=== PATIENT | female | born 1975 | race Two or more races ===

== ENCOUNTER 2017-05-30 11:12 | Emergency (ER) | payer MEDICAID ==
[~2017-05-30] VITALS: Ht 165.1 cm; Wt 104.2 kg
[2017-05-30 11:13] VITALS: BP 122/83
[2017-05-30] MEDS ORDERED: DIAZEPAM 5 MG TABLET ONE (11:40)
[2017-05-30] MEDS ORDERED: KETOROLAC 30 MG/1 ML ONE (11:40)
[2017-05-30] MEDS ORDERED: HYDROcodone/APAP 5/325 TABLET ONE (11:40)
[2017-05-30] MEDS ORDERED: DIAZEPAM 5 MG TABLET PO ONE (12:00)
[2017-05-30] MEDS ORDERED: HYDROcodone/APAP 5/325 TABLET PO ONE (12:00)
[2017-05-30] MEDS ORDERED: KETOROLAC 30 MG/1 ML IM ONE (12:00)
== END 2017-05-30 12:39 | disposition home or self-care (01) ==
LOC: ED 12:00
DX: M47.896 Other spondylosis, lumbar region (principal); M54.16 Radiculopathy, lumbar region; M54.5 Low back pain; Z98.51 Tubal ligation status; Z90.710 Acquired absence of both cervix and uterus; Z88.8 Allergy status to other drugs, medicaments and biological substances
CPT/HCPCS: 72110; 96372; 99284; J1885

== ENCOUNTER 2017-12-18 15:14 | Emergency (ER) | payer MEDICAID ==
[~2017-12-18] VITALS: Ht 165.1 cm; Wt 114.3 kg
[2017-12-18 15:17] VITALS: BP 118/52
== END 2017-12-18 15:43 | disposition home or self-care (01) ==
LOC: ED 15:35
DX: H65.01 Acute serous otitis media, right ear (principal); H60.92 Unspecified otitis externa, left ear; Z88.7 Allergy status to serum and vaccine
CPT/HCPCS: 99283

== ENCOUNTER 2019-04-05 12:27 | Emergency (ER) | payer MEDICAID ==
[~2019-04-05] VITALS: Ht 165.1 cm; Wt 112.6 kg
[2019-04-05 12:28] VITALS: BP 140/65
== END 2019-04-05 14:31 | disposition home or self-care (01) ==
LOC: ED 14:15
DX: H65.91 Unspecified nonsuppurative otitis media, right ear (principal); H92.01 Otalgia, right ear
CPT/HCPCS: 99282